=== PATIENT | male | born 1935 | race Caucasian/White ===

== ENCOUNTER 2018-12-10 14:46 | Emergency (ER) | payer OTHER ==
[~2018-12-10] VITALS: Ht 172.7 cm; Wt 58.1 kg
[~2018-12-10 14:46] MED LIST: ACIDOPHILUS1 EAC4 PO; CIPRO500 MG PO; COUMADIN 3 MG TA3 M1 PO; COUMADIN 5 MG TA5 M1 PO; FLOMAX0.4 MG PO; IRON325 PO; LIDODERM 5%1 PATC1 TRANSDERM; MIDODRINE HCL 55 M1 PO; MIDODRINE HCL2.5 M1 PO; MULTIVITAMINS1 EAC7 PO; NEXIUM40 MG PO; PROTONIX40 M2 PO; SENOKOT-S1 TA1 PO; UNICOMPLEX M TA1 TA1 PO; VITAMIN D34000 UNIT PO
[2018-12-10 15:16] LABS: ABSOLUTE NEUTROPHILS 5.2 thou/uL (1.4-8.2); BASOPHILS 1.3 % (0.0-2.0); EOSINOPHILS 1.7 % (0.0-3.0); HEMATOCRIT 39.9 % (42.0-52.0); HEMOGLOBIN 13.6 gm/dL (14.0-18.0); LYMPHOCYTES 23.5 % (24.0-44.0); MCH 28.4 pg (26.0-34.0); MCV 83.4 fL (80.0-100.0); MONOCYTES 7.9 % (1.0-8.0); PLATELET COUNT 282 thou/uL (150-400); POLYS 65.6 % (36.0-66.0); RBC 4.78 mil/uL (4.50-6.00); RDW 14.1 % (10.5-14.5)
[2018-12-10 15:30] LABS: ANION GAP 14 mmol/L (7-16); BUN 25 mg/dL (7-18); CALCIUM 9.3 mg/dL (8.5-10.1); CHLORIDE 104 mmol/L (98-107); CO2 25 mmol/L (21-32); CREATININE 1.8 mg/dL (0.7-1.3); GLUCOSE 97 mg/dL (74-106); POTASSIUM 3.6 mmol/L (3.5-5.1); SODIUM 143 mmol/L (136-145)
[2018-12-10 15:39] LABS: ALBUMIN 4.3 g/dL (3.4-5.0); SGOT 20 U/L (15-37); SGPT 29 U/L (30-65); TOTAL BILIRUBIN 0.6 mg/dL (<0.1-1.0); TOTAL PROTEIN 8.3 g/dL (6.4-8.2); TROPONIN-I <0.06 ng/mL (<0.06)
--- NOTE | 2018-12-10 16:35 | EKG ---
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
[2018-12-10 17:13] LABS: ICTOTEST (BILI CONFIRMATORY) Negative (Negative); URINE BILIRUBIN NEGATIVE (Negative); URINE BLOOD NEGATIVE (Negative); URINE CLARITY CLEAR; URINE COLOR YELLOW; URINE GLUCOSE-RANDOM* TRACE (Negative); URINE KETONES TRACE (Negative); URINE LEUKOCYTES-REFLEX NEGATIVE (Negative); URINE NITRITE-REFLEX NEGATIVE (Negative); URINE PROTEIN (DIPSTICK) TRACE (Negative); URINE SPECIFIC GRAVITY > 1.030 (1.005-1.035); URINE UROBILINOGEN 0.2 E.U./dl (0.2-1.0)
[2018-12-10 18:28] VITALS: BP 128/76
== END 2018-12-10 18:30 | disposition home or self-care (01) ==
LOC: ER 14:46
PROVIDERS: Student in an Organized Health Care Education/Training Program
DX: E86.0 Dehydration (principal); I48.2 Chronic atrial fibrillation; Z87.891 Personal history of nicotine dependence; Z86.2 Personal history of diseases of the blood and blood-forming organs and certain disorders involving the immune mechanism

== ENCOUNTER 2020-11-04 10:16 | Emergency (ER) | payer OTHER ==
[~2020-11-04] VITALS: Ht 172.7 cm; Wt 44.9 kg
[2020-11-04] MEDS ORDERED: PANTOPRAZOLE SO40 M3 PER TUBE (10:50)
[2020-11-04] MEDS ORDERED: FLOMAX0.4 MG PER TUBE (10:50)
[2020-11-04 13:22] VITALS: BP 93/52
== END 2020-11-04 15:10 | disposition short-term general hospital (02) ==
LOC: ER 10:16
DX: K94.23 Gastrostomy malfunction (principal); Y83.8 Other surgical procedures as the cause of abnormal reaction of the patient, or of later complication, without mention of misadventure at the time of the procedure; Y82.8 Other medical devices associated with adverse incidents; I48.91 Unspecified atrial fibrillation; Z79.899 Other long term (current) drug therapy; Z87.891 Personal history of nicotine dependence